=== PATIENT | male | born 1955 | race Caucasian/White ===

== ENCOUNTER 2018-11-17 17:22 | Inpatient (IN) | payer OTHER ==
[~2018-11-17] VITALS: Ht 162.6 cm; Wt 103.4 kg
[2018-11-17 18:14] LABS: BASOPHILS ABSOLUTE AUTO 0.02 K/mm3 (0.00-0.23); BASOPHILS PERCENT AUTO 0 % (0-2); EOSINOPHILS PERCENT AUTO 0 % (0-6); Hematocrit 38.6 % (37.0-53.0); IMMATURE GRAN ABSOLUTE AUTO 0.14 K/mm3 (0.00-0.10); IMMATURE GRAN PERCENT AUTO 1 % (0-1); LYMPHOCYTES ABSOLUTE AUTO 0.34 K/mm3 (0.84-5.20); LYMPHOCYTES PERCENT AUTO 2 % (21-46); MONOCYTES ABSOLUTE AUTO 0.82 K/mm3 (0.16-1.47); MONOCYTES PERCENT AUTO 5 % (4-13); Mean Corpuscular HGB Conc 36.3 g/dL (31.5-36.5); Mean Corpuscular Volume 91 fL (80-100); Mean Platelet Volume 9.2 fL (9.1-12.4); NEUTROPHILS ABSOLUTE AUTO 15.64 K/mm3 (1.96-9.15); NEUTROPHILS PERCENT AUTO 92 % (41-73); Platelet Count 194 K/mm3 (150-400); RDW Coefficient Variation 11.9 % (11.7-14.2); RDW Standard Deviation 40.1 fL (35.1-46.3); Red Blood Cell Count 4.24 M/mm3 (4.30-5.90); White Blood Cell Count 16.96 K/mm3 (4.00-11.30)
[2018-11-17 18:35] LABS: BAND PERCENT MAN 19 % (0-8); BASOPHILS PERCENT MAN 0 % (0-2); EOSINOPHILS PERCENT MAN 0 % (0-6); LYMPHOCYTES PERCENT MAN 3 % (21-46); MONOCYTES ABSOLUTE MAN 1.18 K/mm3 (0.16-1.47); MONOCYTES PERCENT MAN 7 % (4-13); NEUTROPHILS ABSOLUTE MAN 15.26 K/mm3 (1.96-9.15); SEG NEUTROPHILS PERCENT MAN 71 % (41-73); TOTAL CELLS COUNTED 100
[2018-11-17 18:43] LABS: Troponin I <0.015 ng/mL (0.000-0.040)
[2018-11-17 19:26] LABS: Alanine Aminotransfer (ALT/SGP 320 U/L (12-78); Albumin, Blood 3.4 g/dL (3.4-5.0); Albumin/Globulin Ratio 0.9 (0.8-1.8); Alk Phos 163 U/L (50-136); Anion Gap 10 mmol/L (6-16); Aspartate Aminotrans (AST/SGOT 116 U/L (12-37); Bilirubin, Total 1.8 mg/dL (0.1-1.0); Blood Urea Nitrogen 17 mg/dL (8-24); Bun/Creatinine Ratio 17.6 (12.0-20.0); CO2, Blood 27 mmol/L (21-32); Calcium, Blood 9.1 mg/dL (8.5-10.1); Chloride, Blood 87 mmol/L (98-108); Creatinine, Blood 0.97 mg/dL (0.60-1.20); Globulin, Blood 3.9 g/dL (2.2-4.0); Glomerular Filtration Rate >60 (60-); Glucose, Blood 155 mg/dL (70-99); Potassium, Blood 3.3 mmol/L (3.5-5.5); Sodium, Blood 124 mmol/L (136-145); Total Protein, Blood 7.3 g/dL (6.4-8.2)
[2018-11-17 19:46] LABS: Source, Urine Clean Catch
[2018-11-17 19:48] LABS: Appearance, Urine Clear (Clear); Blood, Urine 4+ (Neg); Color, Urine Amber (P-Yellow); Glucose Qualitative, Urine Neg (Neg); Ketones, Urine 1+ (Neg); Leukocyte Esterase, Urine 1+ (Neg); Nitrite, Urine Neg (Neg); Protein, Urine 3+ (Neg); Urobilinogen, Urine 2+ (Normal)
[2018-11-17 19:56] LABS: Bilirubin, Urine 1+ (Neg)
[2018-11-17 19:58] LABS: Bacteria Rare /hpf; Red Blood Cells, Urine 0-2 /hpf (0-2); Squamous Epithelial Cells Rare /hpf (Few); White Blood Cells, Urine 0-2 /hpf (0-5)
[2018-11-17] MEDS ORDERED: Prinivil10 MG PO (20:09)
[2018-11-17] MEDS ORDERED: METF500C PO (20:10)
[2018-11-17] MEDS ORDERED: Hydrochloroth12.5 MG PO (20:10)
[2018-11-17] MEDS ORDERED: ATOR40TA PO (20:11)
[2018-11-17] MEDS ORDERED: LEVSOD100 PO (20:11)
[2018-11-17] MEDS ORDERED: Cyclobenzaprine5 MG PO (20:12)
[2018-11-17 20:23] LABS: Influenza A Negative (NEGATIVE); Influenza B Negative (NEGATIVE)
[2018-11-17 20:49] LABS: CPK Creatine Kinase 110 U/L (39-308)
[2018-11-17 20:53] LABS: Creatine Kinase MB <1.0 ng/mL (0.0-3.6); Creatine Kinase MB Index Unable to Calculate (0.0-4.0)
[2018-11-18 00:06] LABS: International Normalized Ratio 1.09; Prothrombin Time Results 11.5 Sec (9.7-11.5)
[2018-11-18 04:17] LABS: BASOPHILS ABSOLUTE AUTO 0.04 K/mm3 (0.00-0.23); BASOPHILS PERCENT AUTO 0 % (0-2); EOSINOPHILS PERCENT AUTO 0 % (0-6); Hematocrit 35.2 % (37.0-53.0); Hemoglobin 12.4 g/dL (13.5-17.5); Mean Corpuscular HGB 32.6 pg (26.0-34.0); Mean Corpuscular HGB Conc 35.2 g/dL (31.5-36.5); Mean Corpuscular Volume 93 fL (80-100); Mean Platelet Volume 9.2 fL (9.1-12.4); Platelet Count 168 K/mm3 (150-400); RDW Coefficient Variation 12.2 % (11.7-14.2); RDW Standard Deviation 41.7 fL (35.1-46.3); White Blood Cell Count 11.93 K/mm3 (4.00-11.30)
[2018-11-18 04:19] LABS: IMMATURE GRAN ABSOLUTE AUTO 0.06 K/mm3 (0.00-0.10); IMMATURE GRAN PERCENT AUTO 1 % (0-1); LYMPHOCYTES ABSOLUTE AUTO 0.52 K/mm3 (0.84-5.20); LYMPHOCYTES PERCENT AUTO 4 % (21-46); MONOCYTES ABSOLUTE AUTO 0.98 K/mm3 (0.16-1.47); MONOCYTES PERCENT AUTO 8 % (4-13); NEUTROPHILS ABSOLUTE AUTO 10.33 K/mm3 (1.96-9.15); NEUTROPHILS PERCENT AUTO 87 % (41-73)
[2018-11-18 04:39] LABS: Alanine Aminotransfer (ALT/SGP 248 U/L (12-78); Albumin, Blood 2.9 g/dL (3.4-5.0); Albumin/Globulin Ratio 0.7 (0.8-1.8); Alk Phos 135 U/L (50-136); Anion Gap 7 mmol/L (6-16); Aspartate Aminotrans (AST/SGOT 104 U/L (12-37); Bilirubin, Total 1.2 mg/dL (0.1-1.0); Blood Urea Nitrogen 14 mg/dL (8-24); Bun/Creatinine Ratio 16.2 (12.0-20.0); CO2, Blood 28 mmol/L (21-32); Calcium, Blood 8.2 mg/dL (8.5-10.1); Chloride, Blood 95 mmol/L (98-108); Creatinine, Blood 0.87 mg/dL (0.60-1.20); Globulin, Blood 3.9 g/dL (2.2-4.0); Glomerular Filtration Rate >60 (60-); Glucose, Blood 100 mg/dL (70-99); Magnesium, Blood 1.6 mg/dL (1.6-2.4); Sodium, Blood 130 mmol/L (136-145); Total Protein, Blood 6.8 g/dL (6.4-8.2)
--- NOTE | 2018-11-18 06:21 | NUR ---
ASSUMED CARE APPROXIMATELY 0130; PT SELF TRANSFERED TO BED; A&O X4; PT ON RA O2 SATS >90; AMBULATES TO BATHROOM; PT WEARS GLASSES AND STATES HE WEARS DENTURES, HOWEVER DID NOT BRING THEM TO THE HOSPITAL; PT DENIES PAIN; PT SLEPT WELL IN BETWEEN INTERVENTIONS; CONSULTS CALLED TO DR. BURCH, DR. VELASQUEZ AND PALLIATIVE CARE; BED IN LOWEST POSITION; CALL LIGHT IN REACH; BED ALARM ON; WILL CONTINUE TO MONITOR AND ASSESS UNTIL HAND OFF TO DAY SHIFT;
--- NOTE | 2018-11-18 09:15 | NUR ---
AM NOTE. ASSUMED CARE OF PT APROX 0700. PT IS A&Ox4 BUT A POOR HISTORIAN. PT WAS ADMITTED FOR SEPSIS AND LIVER ABCESS, PT IS TO HAVE A GUIDED DRAINAGE AT SOME POINT TODAY. PT IS NSR IN THE 60'S-70'S PER AUTOMOTIVE GLAZIER, PT'S VS STABLE AT THIS TIME. PT HAS TRACE EDEMA NOTED TO HIS BLE. L/S CLEAR T/O DIM IN THE BASES. BT PRESENT AND NORMOACTIVE, ABD IS SLIGHTLY FIRM BUT NONTENDER TO PALP. PT IS DIAPHORETIC, PT STATES THIS HAS BEEN HAPPENING SINCE HE'S "BEEN SICK" PT IS AFEBIRLE AT 98.5. WILL CONTINUE TO MONITOR.
--- NOTE | 2018-11-18 18:02 | NUR ---
SHIFT SUMMARY. NO ACUTE NEGATIVE CHANGES NOTED THIS SHIFT. PT HAD US GUIDED DRAINAGE OF THE LIVER ABCESS, PT'S VS HAVE BEEN STABLE ALL SHIFT. PT WAS ABLE TO TAKE SHOWER THIS AFTERNOON WITH MINIMAL ASSIST. PT DENIES ANY CHEST PAIN/PRESSURE, N/V OR SOB. PT DENIES ABD PAIN AND BT PRESENT AND NORMOACTIVE. ABD IS STILL SLIGHTLY FIRM TO PALP BUT PT STATES THIS HAS IMPROVED. PT BECAME FEBRILE THIS AFTERNOON, PROVIDER MADE AWARE AND TYLENOL WAS GIVEN WITH GOOD RESULTS. PT'S HAS BEEN AT THE BEDSIDE OFF AND ON THIS SHIFT. NO EVENTS NOTED ON TELE. WILL CONTINUE TO MONITOR UNTIL REPORT IS GIVEN TO ONCOMING RN.
--- NOTE | 2018-11-18 19:29 | NUR ---
OPENING NOTE RECEIVED REPORT FROM HIWOT BUTLER AND ASSUMED CARE. PT IS SITTING UP IN BED, WATCHING TELEVISION. DENIES COMPLAINTS AT THIS TIME. NO ACUTE CONCERNS, WILL CONTINUE PLAN OF CARE.
[2018-11-19 02:11] LABS: Vancomycin, Trough 11.5 ug/mL (5.0-10.0)
--- NOTE | 2018-11-19 06:39 | NUR ---
SHIFT SUMMARY PT HAS RESTED WELL THROUGH SHIFT. DENIES PAIN OR COMPLAINTS. STATES " LONG YOU DON'T COME AT ME WITH SOMETHING SHARP, I'LL BE FEELING FINE". NS RUNNING AT 100 ML/HR TO RFA IV SITE. PT UP INDEPENDENTLY TO BRP. OVERALL STATUS: UNCHANGED, MEDICAL NO TELE STATUS. PENDING RESULTS FROM LIVER DRAINAGE BIOPSY. NO ACUTE CONCERNS. WILL PROVIDE BEDSIDE REPORT TO ONCOMING RN.
--- NOTE | 2018-11-19 08:33 | NUR ---
AM NOTE. ASSUMED CARE OF PT APROX 0700, PT IS A&Ox4 AND IND IN THE ROOM. PT WAS ADMITTED FOR SEPSIS AND LIVER ABCESS THAT WAS DRAINED ON 11/18. PT'S VS HAVE BEEN STABLE. PT DENIES ANY ABD PAIN OR CHEST PAIN AT THIS TIME. L/S CLEAR T/O PT IS ON RA. BT PRESENT AND NORMOACTIVE, ABD IS SLIGHTLY FIRM AND NONTENDER TO PALP. WILL CONTINUE TO MONITOR.
[2018-11-19 09:25] LABS: BASOPHILS ABSOLUTE AUTO 0.03 K/mm3 (0.00-0.23); BASOPHILS PERCENT AUTO 0 % (0-2); EOSINOPHILS ABSOLUTE AUTO 0.14 K/mm3 (0.00-0.68); EOSINOPHILS PERCENT AUTO 2 % (0-6); Hematocrit 34.9 % (37.0-53.0); Hemoglobin 11.9 g/dL (13.5-17.5); IMMATURE GRAN ABSOLUTE AUTO 0.04 K/mm3 (0.00-0.10); IMMATURE GRAN PERCENT AUTO 1 % (0-1); LYMPHOCYTES ABSOLUTE AUTO 0.67 K/mm3 (0.84-5.20); LYMPHOCYTES PERCENT AUTO 8 % (21-46); MONOCYTES ABSOLUTE AUTO 0.71 K/mm3 (0.16-1.47); MONOCYTES PERCENT AUTO 8 % (4-13); Mean Corpuscular HGB 32.3 pg (26.0-34.0); Mean Corpuscular HGB Conc 34.1 g/dL (31.5-36.5); Mean Corpuscular Volume 95 fL (80-100); Mean Platelet Volume 9.6 fL (9.1-12.4); NEUTROPHILS ABSOLUTE AUTO 7.07 K/mm3 (1.96-9.15); NEUTROPHILS PERCENT AUTO 82 % (41-73); Platelet Count 146 K/mm3 (150-400); RDW Coefficient Variation 12.6 % (11.7-14.2); RDW Standard Deviation 44.4 fL (35.1-46.3); Red Blood Cell Count 3.68 M/mm3 (4.30-5.90); White Blood Cell Count 8.66 K/mm3 (4.00-11.30)
[2018-11-19 09:39] LABS: Anion Gap 5 mmol/L (6-16); Blood Urea Nitrogen 16 mg/dL (8-24); Bun/Creatinine Ratio 24.8 (12.0-20.0); CO2, Blood 25 mmol/L (21-32); Calcium, Blood 8.2 mg/dL (8.5-10.1); Chloride, Blood 102 mmol/L (98-108); Creatinine, Blood 0.65 mg/dL (0.60-1.20); Glomerular Filtration Rate >60 (60-); Glucose, Blood 186 mg/dL (70-99); Sodium, Blood 132 mmol/L (136-145)
[2018-11-19 16:51] LABS: Adenovirus F 40/41 Not Detected (NOT DETECT); Astrovirus Not Detected (NOT DETECT); Campylobacter Sp Not Detected (NOT DETECT); Cryptosporidium Not Detected (NOT DETECT); Cyclospora Cayetanensis Not Detected (NOT DETECT); E. Coli O157 Not Detected (NOT DETECT); Entamoeba Histolytica Not Detected (NOT DETECT); Enteroaggregative E. coli-EAEC Not Detected (NOT DETECT); Enteropathogenic E. coli-EPEC Not Detected (NOT DETECT); Enterotoxigenic E. coli-ETEC Not Detected (NOT DETECT); Giardia Lamblia Not Detected (NOT DETECT); Norovirus GI/GII Not Detected (NOT DETECT); Plesiomonas Shigelloides Not Detected (NOT DETECT); Rotavirus A Not Detected (NOT DETECT); Salmonella Sp Not Detected (NOT DETECT); Sapovirus Not Detected (NOT DETECT); Shiga Toxin-prod E. coli-STEC Not Detected (NOT DETECT); Shigella/Enteroin E. coli-EIEC Not Detected (NOT DETECT); Vibrio Cholerae Not Detected (NOT DETECT); Vibrio Sp Not Detected (NOT DETECT); Yersinia Enterocolitica Not Detected (NOT DETECT)
--- NOTE | 2018-11-19 16:57 | NUR ---
SHIFT SUMMARY. NO ACUTE NEGATIVE CHANGES NOTED. PT HAS SLEPT SEVERAL HOURS THIS SHIFT. PT'S VS HAVE BEEN STABLE T/O SHIFT. PT DENIES ANY ABD PAIN, N/V OR SOB. PT HAS HAD 4 EPISODES OF DIARRHEA, A SAMPLE WAS SENT TO LAB AND WAS NEGATIVE FOR C.DIFF OR ANYTHING ELSE. PT HAS BEEN IND IN THE ROOM. CALL LIGHT IN REACH, WILL CONTINUE TO MONITOR UNTIL REPORT IS GIVEN TO ONCOMING RN.
[2018-11-20 04:18] LABS: BASOPHILS ABSOLUTE AUTO 0.03 K/mm3 (0.00-0.23); BASOPHILS PERCENT AUTO 0 % (0-2); EOSINOPHILS ABSOLUTE AUTO 0.26 K/mm3 (0.00-0.68); EOSINOPHILS PERCENT AUTO 3 % (0-6); Hematocrit 36.7 % (37.0-53.0); Hemoglobin 12.3 g/dL (13.5-17.5); IMMATURE GRAN ABSOLUTE AUTO 0.07 K/mm3 (0.00-0.10); IMMATURE GRAN PERCENT AUTO 1 % (0-1); LYMPHOCYTES ABSOLUTE AUTO 1.44 K/mm3 (0.84-5.20); LYMPHOCYTES PERCENT AUTO 17 % (21-46); MONOCYTES ABSOLUTE AUTO 0.68 K/mm3 (0.16-1.47); MONOCYTES PERCENT AUTO 8 % (4-13); Mean Corpuscular HGB 32.9 pg (26.0-34.0); Mean Corpuscular HGB Conc 33.5 g/dL (31.5-36.5); Mean Corpuscular Volume 98 fL (80-100); Mean Platelet Volume 10.1 fL (9.1-12.4); NEUTROPHILS PERCENT AUTO 71 % (41-73); Platelet Count 169 K/mm3 (150-400); RDW Coefficient Variation 12.8 % (11.7-14.2); RDW Standard Deviation 46.4 fL (35.1-46.3); Red Blood Cell Count 3.74 M/mm3 (4.30-5.90); White Blood Cell Count 8.48 K/mm3 (4.00-11.30)
--- NOTE | 2018-11-20 04:37 | NUR ---
Shift Summary NO acute events this shift. Pt remains on RA, alert and oriented, able to make needs known, ambulates to bathroom with minimal assistance. Pt abx tx continues to infuse this shift per orders. Pt calls appropriately to makes needs known. This pt with VSS this shift, no acute changes from initial shift assessment. moves all extremities independantly, moves all extremities well. Abd remains nontender per pt report. Pt with two BM this morning. NS continues to infuse 100ml/hr per orders. Will continue to monitor and provide care per orders until day RN assumes care.
[2018-11-20 04:40] LABS: Alanine Aminotransfer (ALT/SGP 174 U/L (12-78); Albumin, Blood 2.8 g/dL (3.4-5.0); Albumin/Globulin Ratio 0.7 (0.8-1.8); Alk Phos 153 U/L (50-136); Anion Gap 5 mmol/L (6-16); Aspartate Aminotrans (AST/SGOT 126 U/L (12-37); Bilirubin, Direct 0.2 mg/dL (0.0-0.3); Bilirubin, Indirect 0.4 mg/dL (0.1-0.7); Bilirubin, Total 0.6 mg/dL (0.1-1.0); Blood Urea Nitrogen 14 mg/dL (8-24); Bun/Creatinine Ratio 20.3 (12.0-20.0); CO2, Blood 28 mmol/L (21-32); Calcium, Blood 8.6 mg/dL (8.5-10.1); Chloride, Blood 102 mmol/L (98-108); Creatinine, Blood 0.69 mg/dL (0.60-1.20); Globulin, Blood 4.2 g/dL (2.2-4.0); Glomerular Filtration Rate >60 (60-); Glucose, Blood 102 mg/dL (70-99); Potassium, Blood 4.2 mmol/L (3.5-5.5); Sodium, Blood 135 mmol/L (136-145)
--- NOTE | 2018-11-20 10:12 | NUR ---
AM NOTE. ASSUMED CARE OF PT APROX 0700, PT IS A&Ox4 AND IND IN THE ROOM. PT WAS ADMITTED FOR LIVER ABCESS AND SEPSIS. PT'S VS HAVE BEEN STABLE. PT DENIES ANY CP,N/V OR SOB. PT DENIES ABD PAIN. PT IS IN NSR. NO EDEMA IS NOTED ON ASSESSMENT. L/S CLEAR AND DIM IN THE BASES. BT PRESENT AND NORMOACITVE, ABD IS SLIGHTLY FIRM AND NONTENDER TO PALP. PT HAS HAD ANOTHER EPISODE OF DIARRHEA, SAMPLE WAS SENT TO LAB AND CAME BACK NEGATIVE. WILL CONTINUE TO MONITOR.
--- NOTE | 2018-11-20 17:37 | NUR ---
SHIFT SUMMARY. NO ACUTE CHANGES NOTED THIS SHIFT. PT HAS BEEN IND IN THE ROOM. PT DENIES ANY CHEST PAIN/PRESSURE OR ABD PAIN. PT IS VERY ANXIOUS TO GO HOME. PT'S VS HAVE BEEN STABLE. WILL CONTINUE TO MONITOR UNTIL REPORT IS GIVEN TO ONCOMING RN.
[2018-11-21 04:03] LABS: Hematocrit 36.1 % (37.0-53.0); Hemoglobin 12.2 g/dL (13.5-17.5); Mean Corpuscular HGB 31.9 pg (26.0-34.0); Mean Corpuscular HGB Conc 33.8 g/dL (31.5-36.5); Mean Platelet Volume 9.5 fL (9.1-12.4); Platelet Count 228 K/mm3 (150-400); RDW Coefficient Variation 12.5 % (11.7-14.2); RDW Standard Deviation 43.6 fL (35.1-46.3); Red Blood Cell Count 3.83 M/mm3 (4.30-5.90)
[2018-11-21 04:04] LABS: Mean Corpuscular Volume 94 fL (80-100)
[2018-11-21 04:24] LABS: Alanine Aminotransfer (ALT/SGP 131 U/L (12-78); Albumin, Blood 2.7 g/dL (3.4-5.0); Albumin/Globulin Ratio 0.7 (0.8-1.8); Alk Phos 139 U/L (50-136); Anion Gap 7 mmol/L (6-16); Aspartate Aminotrans (AST/SGOT 76 U/L (12-37); Bilirubin, Total 0.6 mg/dL (0.1-1.0); Blood Urea Nitrogen 13 mg/dL (8-24); Bun/Creatinine Ratio 18.2 (12.0-20.0); CO2, Blood 28 mmol/L (21-32); Calcium, Blood 8.8 mg/dL (8.5-10.1); Chloride, Blood 100 mmol/L (98-108); Creatinine, Blood 0.72 mg/dL (0.60-1.20); Globulin, Blood 4.1 g/dL (2.2-4.0); Glomerular Filtration Rate >60 (60-); Glucose, Blood 97 mg/dL (70-99); Potassium, Blood 4.1 mmol/L (3.5-5.5); Sodium, Blood 135 mmol/L (136-145); Total Protein, Blood 6.8 g/dL (6.4-8.2)
--- NOTE | 2018-11-21 05:57 | NUR ---
Shift Summary No acute changes this shift. VSS. Pt independant in room, calls appropriately, makes needs knonw. Pt is alert and oriented, moves all extremities without difficultly. Breathing easy and unlabored on RA. Pt denies abd pain or tightness this shift. Normothermic. No acute concerns to report, this pt has had a rather uneventful night. Pt able to rest and sleep throughout the majority of this shift. This is a medical status pt without orders for tele, pt has denies chest pain or pressure. No cardiac sx to report. will continue to monitor and provide care per orders until day RN assumes care.
[2018-11-21 06:37] LABS: BAND PERCENT MAN 1 % (0-8); BASOPHILS PERCENT MAN 0 % (0-2); EOSINOPHILS ABSOLUTE MAN 0.37 K/mm3 (0.00-0.68); EOSINOPHILS PERCENT MAN 4 % (0-6); LYMPHOCYTES % ATYPICAL MANUAL 3 % (0-0); LYMPHOCYTES PERCENT MAN 13 % (21-46); MONOCYTES ABSOLUTE MAN 0.84 K/mm3 (0.16-1.47); MONOCYTES PERCENT MAN 9 % (4-13); NEUTROPHILS ABSOLUTE MAN 6.48 K/mm3 (1.96-9.15); PLASMA CELL ABSOLUTE MAN 0.18 K/mm3 (0.00-0.00); PLASMA CELLS PERCENT MAN 2 % (0-0); SEG NEUTROPHILS PERCENT MAN 68 % (41-73); TOTAL CELLS COUNTED 100
[2018-11-21] MEDS ORDERED: Vsl#3 Capsule1 EACH PO (10:39)
[2018-11-21] MEDS ORDERED: CEFU500T30 PO (10:40)
--- NOTE | 2018-11-21 11:15 | NUR ---
DISCHARGE NOTE PT STABLE FOR DISCHARGE. IV REMOVED. DISCHARGE INSTRUCTIONS AND DISCHARGE MEDICATIONS REVIEWED WITH PT. PT VERBALIZES UNDERSTANDING AND DENIES QUESTIONS. AWAITING ARRIVAL OF RIDE HOME.
--- NOTE | 2018-11-21 12:00 | NUR ---
PT DISCHARGED VIA WHEELCHAIR TO WAITING CAR WITH BELONGINGS.
== END 2018-11-21 12:07 | disposition home or self-care (01) | DRG 871 ==
LOC: ER 17:22 → PCU 23:36
PROVIDERS: Emergency Medicine; Hospitalist; Internal Medicine; Nurse Practitioner Acute Care; ADMIT Internal Medicine
PROC: 0F923ZZ Drainage of Left Lobe Liver, Percutaneous Approach (ICD-10-PCS; principal; 2018-11-18)
DX: A41.89 Other specified sepsis (principal); K75.0 Abscess of liver; E87.1 Hypo-osmolality and hyponatremia; Z68.42 Body mass index [BMI] 45.0-49.9, adult; E11.9 Type 2 diabetes mellitus without complications; I10 Essential (primary) hypertension; E03.9 Hypothyroidism, unspecified; G89.29 Other chronic pain; M54.5 Low back pain; R65.20 Severe sepsis without septic shock; E87.6 Hypokalemia; E78.5 Hyperlipidemia, unspecified; E66.01 Morbid (severe) obesity due to excess calories; Z87.891 Personal history of nicotine dependence; Z91.040 Latex allergy status; Z79.899 Other long term (current) drug therapy
CPT/HCPCS: 0097U; 36415; 49405; 71046; 74177; 76705; 80048; 80053; 80076; 80202; 81001; 82550; 82553; 82947; 82977; 83605; 83690; 83735; 83880; 84484; 85025; 85610; 87040; 87070; 87075; 87077; 87086; 87186; 87205; 87804; 93005; 93010; 96361; 96365-59; 96367; 99285-25; A9270; J0456; J0692; J0696; J0744; J2543; J3370; J7030; J7050; Q9967

== ENCOUNTER 2019-01-27 07:13 | Day surgery (SDC) | payer OTHER ==
[~2019-01-27] VITALS: Ht 157.5 cm; Wt 96.2 kg
[~2019-01-27 07:13] MED LIST: ATOR40TA PO; CEFU500T30 PO; Cyclobenzaprine5 MG PO; Hydrochloroth12.5 MG PO; LEVSOD100 PO; METF500C PO; Prinivil10 MG PO; TIROSINT100 MCG PO; Vsl#3 Capsule1 EACH PO
--- NOTE | 2019-01-27 08:29 | NUR ---
Ambulatory in Day Surgery History, Chart, Medications and Allergies reviewed before start of procedure.Lungs clear T/O to Auscultation. Patient confirms NPO status and agrees with scheduled surgery. Patient States Post-Procedure ride home has been arranged. Patient states colon prep results clear. BLOOD SUGAR 96
--- NOTE | 2019-01-27 08:54 | NUR ---
01/27/19 0854 TIANA NEGRO History, Chart, Medications and Allergies reviewed before start of procedure.3-LEAD EKG REVIEWED WITH PHYSICIAN PRIOR TO START OF PROCEDURE.O2 VIA N/C INTACT THROUGHOUT SEDATION/PROCEDURE. PATIENT DETERMINED TO BE ASA APPROPRIATE FOR PROPOFOL SEDATION PRIOR TO START OF PROCEDURE BY .
--- NOTE | 2019-01-27 09:35 | NUR ---
PT TO STEP. DENIES PAIN. ADVISED TO PASS AIR IF ABLE. DENIES NAUSEA. REFUSES DRINK.
--- NOTE | 2019-01-27 10:00 | NUR ---
WRITTEN AND VERBAL D/C INSTUCTIONS GIVEN TO PT WITH STATED UNDERSTANDING. D/C HOME VIA MEDICAL TRANSPORT.
== END 2019-01-27 23:01 | disposition home or self-care (01) ==
LOC: ORSCMMR 07:13 → ORD 08:30 → ORSCMMR 23:01
PROVIDERS: Internal Medicine Gastroenterology
PROC: 0DBL8ZX Excision of Transverse Colon, Via Natural or Artificial Opening Endoscopic, Diagnostic (ICD-10-PCS; principal; 2019-01-27 08:30)
PROC: 0DBN8ZX Excision of Sigmoid Colon, Via Natural or Artificial Opening Endoscopic, Diagnostic (ICD-10-PCS; principal; 2019-01-27 08:30)
DX: K75.0 Abscess of liver (principal); K63.5 Polyp of colon; D12.3 Benign neoplasm of transverse colon; K57.30 Diverticulosis of large intestine without perforation or abscess without bleeding; E78.00 Pure hypercholesterolemia, unspecified; E03.9 Hypothyroidism, unspecified; Z86.010 Personal history of colon polyps; E11.9 Type 2 diabetes mellitus without complications; I10 Essential (primary) hypertension; Z79.899 Other long term (current) drug therapy
CPT/HCPCS: 82947; 88305; J2704; J7120

== ENCOUNTER → 2023-08-04 | Outpatient (CLI) | payer MEDICARE, OTHER ==
[2023-08-04 14:23] LABS: Microalb/Creat Ratio UR, Rand Unable to Calculate mg/g (0.000-30.000); Microalbumin, Random Urine <5.000 mg/L (0.000-20.000)
== END ==
LOC: LAB 11:24 → LAB SHORT 11:24
PROVIDERS: Physician Assistant
DX: E11.9 Type 2 diabetes mellitus without complications (principal)
CPT/HCPCS: 82043; 82570

== ENCOUNTER → 2023-09-22 | Outpatient (CLI) | payer MEDICARE, OTHER ==
[2023-09-22 12:00] LABS: Alanine Aminotransfer (ALT/SGP 24 U/L (12-78); Albumin, Blood 4.1 g/dL (3.4-5.0); Albumin/Globulin Ratio 1.1 (0.8-1.8); Alk Phos 110 U/L (50-136); Anion Gap 9 mmol/L (3-11); Aspartate Aminotrans (AST/SGOT 16 U/L (12-37); Bilirubin, Total 0.6 mg/dL (0.1-1.0); Blood Urea Nitrogen 9 mg/dL (8-24); CO2, Blood 30 mmol/L (21-32); Calcium, Blood 8.9 mg/dL (8.5-10.1); Chloride, Blood 99 mmol/L (98-108); Creatinine, Blood 0.75 mg/dL (0.60-1.20); Globulin, Blood 3.7 g/dL (2.2-4.0); Glomerular Filtration Rate 98 (60-); Glucose, Blood 109 mg/dL (70-99); Phosphorus, Blood 3.4 mg/dL (2.5-4.9); Potassium, Blood 4.3 mmol/L (3.5-5.5); Sodium, Blood 134 mmol/L (136-145); Total Protein, Blood 7.8 g/dL (6.4-8.2)
== END | disposition home or self-care (01) ==
LOC: LAB SHORT 09:35
PROVIDERS: Nurse Practitioner Family
DX: I10 Essential (primary) hypertension (principal)
CPT/HCPCS: 80053; 83880; 84100